=== PATIENT | female | born 2000 | race Caucasian/White ===

== ENCOUNTER 2019-11-01 19:23 | Emergency (ER) | payer MEDICAID ==
[~2019-11-01] VITALS: Ht 167.6 cm; Wt 73.0 kg
[2019-11-01 19:28] VITALS: Ht 167.6 cm; Wt 73.0 kg
== END 2019-11-01 19:57 | disposition home or self-care (01) ==
LOC: ED 19:23
DX: J02.9 Acute pharyngitis, unspecified (principal)